=== PATIENT | male | born 1995 | race African-American/Black ===

== ENCOUNTER 2019-07-13 21:06 | Emergency (ER) | payer OTHER ==
[~2019-07-13] VITALS: Ht 190.5 cm; Wt 104.3 kg
[2019-07-13 23:46] VITALS: BP 149/78
[2019-07-14] MEDS ORDERED: TETANUS-DIPTH-ACEL PERTUSSIS 0.5ML SYRG IM ONE
[2019-07-14] MEDS ORDERED: cefTRIAXone SOD 1,000 MG VL IM ONE
== END 2019-07-14 00:31 | disposition home or self-care (01) ==
LOC: ER 21:11
DX: S61.432A Puncture wound without foreign body of left hand, initial encounter (principal); X58.XXXA Exposure to other specified factors, initial encounter; Y93.89 Activity, other specified; Y92.89 Other specified places as the place of occurrence of the external cause; Y99.0 Civilian activity done for income or pay
CPT/HCPCS: 73130; 90471; 90715; 96372; 99283; J0696